=== PATIENT | male | born 1975 | race Caucasian/White ===

== ENCOUNTER 2020-04-12 20:09 | Emergency (ER) | payer SELFPAY ==
[~2020-04-12] VITALS: Ht 167.6 cm; Wt 72.7 kg
[2020-04-12 20:27] VITALS: BP 145/93
== END 2020-04-12 21:30 | disposition left against medical advice (07) ==
LOC: EMS 20:10
DX: Z01.89 Encounter for other specified special examinations (principal); Z53.21 Procedure and treatment not carried out due to patient leaving prior to being seen by health care provider

== ENCOUNTER 2023-05-06 13:28 | Emergency (ER) | payer OTHER ==
[~2023-05-06] VITALS: Ht 157.5 cm; Wt 65.5 kg
[2023-05-06 13:31] VITALS: TEMP 98.5
[2023-05-06] MEDS ORDERED: HYDROCODONE/ACETAMINOPHEN 5-325 MG TABLET PO ONE (14:00)
[2023-05-06] MEDS ORDERED: PERTUSS(ACELL),DIPH,TET VAC/PF 0.5 ML SYRINGE IM. ONE (14:00)
[2023-05-06] MEDS ORDERED: SODIUM CHLORIDE 0.9% 250 ML IRRIG SOLUTION BOTTLE IRRIG ONE (14:00)
[2023-05-06] MEDS ORDERED: LIDOCAINE 1% 10 ML VIAL ID ONE (14:15)
[2023-05-06] MEDS ORDERED: CEPH-558 PO (15:10)
[2023-05-06] MEDS ORDERED: TRAM-559 PO (15:10)
[2023-05-06 15:19] VITALS: BP 141/90; PULSE 83; RESP 16
== END 2023-05-06 15:31 | disposition home or self-care (01) ==
LOC: EMS 13:30
DX: S01.311A Laceration without foreign body of right ear, initial encounter (principal); I10 Essential (primary) hypertension; Z90.49 Acquired absence of other specified parts of digestive tract; X58.XXXA Exposure to other specified factors, initial encounter; Y93.89 Activity, other specified; Y92.89 Other specified places as the place of occurrence of the external cause; Y99.8 Other external cause status
CPT/HCPCS: 99283; 90715; 90471; 12013; J3490